=== PATIENT | male | born 1995 | race Two or more races ===

== ENCOUNTER 2020-02-26 17:22 | Emergency (ER) | payer OTHER ==
[2020-02-26 17:35] VITALS: BP 137/79
[2020-02-26] MEDS ORDERED: LIDOCAINE 1% HCL (LOCAL ANESTH.) INJ 20ML MDV IJ ONE ×2 (19:15→20:30)
[2020-02-26] MEDS ORDERED: cefTRIAXone SOD 1,000 MG VL IM ONE (19:15)
[2020-02-26] MEDS ORDERED: TETANUS-DIPTH-ACEL PERTUSSIS 0.5ML SYR Tdap IM ONE (19:30)
[2020-02-26] MEDS ORDERED: LIDOCAINE 1% HCL (LOCAL ANESTH.) INJ 20ML MDV ONE (20:24)
== END 2020-02-26 21:18 | disposition home or self-care (01) ==
LOC: ER 17:22
DX: S62.630A Displaced fracture of distal phalanx of right index finger, initial encounter for closed fracture (principal); S62.662A Nondisplaced fracture of distal phalanx of right middle finger, initial encounter for closed fracture; S61.210A Laceration without foreign body of right index finger without damage to nail, initial encounter; S61.212A Laceration without foreign body of right middle finger without damage to nail, initial encounter; W23.0XXA Caught, crushed, jammed, or pinched between moving objects, initial encounter; Y93.89 Activity, other specified; Y92.89 Other specified places as the place of occurrence of the external cause; Y99.0 Civilian activity done for income or pay
CPT/HCPCS: 12002; 29130; 73130; 90471; 90715; 96372; 99284; J0696; J2001